=== PATIENT | male | born 1990 | race Caucasian/White ===

== ENCOUNTER → 2021-10-29 | Outpatient (CLI) | payer OTHER ==
--- NOTE | 2021-10-29 15:04 | KCIC ---
EXAM: MRI LEFT KNEE DATE: 10/29/2021 10:20 AM CLINICAL INDICATION: Reason: LEFT KNEE PAIN / Spl. 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 COMPARISON: None. TECHNIQUE: Multiplanar, multisequence MRI of the LEFT knee was performed without contrast. FINDINGS: No knee joint effusion. No Kaur's cyst. The ACL and PCL are intact. The MCL, fibular collateral ligament, biceps femoris and IT band are inta ct. Popliteus tendon is intact. Extensor mechanism is intact. Neutral patellar tracking. Full-thickness cartilage defect at the lateral patellar facet with subchondral edema. Medial meniscus: Intact Lateral meniscus: Intact Mild edema within the superolateral aspect of Hoffa's fat pad may be seen with Hoffa's impingement. S uprapatellar fat pad edema may be seen with anterior knee pain. No acute fracture or osteonecrosis. IMPRESSION: 1. Chondromalacia patella. 2. Suprapatellar fat pad edema may be seen with anterior knee pain/impingement. 3. Edema at the superolateral Hoffa's fat pad may be seen with Hoffa's impingement syndrome. Electronically signed by: Ricardo Yo MD (10/29/2021 3:02 PM) [id number]
== END ==
LOC: KCIC MRI 09:46
PROVIDERS: ATTEND Family Medicine
DX: S80.912A Unspecified superficial injury of left knee, initial encounter (principal); M22.42 Chondromalacia patellae, left knee; M79.4 Hypertrophy of (infrapatellar) fat pad; X58.XXXA Exposure to other specified factors, initial encounter; Y93.89 Activity, other specified; Y92.89 Other specified places as the place of occurrence of the external cause; Y99.8 Other external cause status
CPT/HCPCS: 73721